=== PATIENT | male | born 1970 | race Caucasian/White ===

== ENCOUNTER 2019-01-21 15:33 | Outpatient (CLI) | payer BC ==
--- NOTE | 2019-01-21 16:07 | RAD ---
KUB 01/21/2019 HISTORY: Abdominal pain FINDINGS: Upright KUB provided. The pelvis is not fully imaged on this exam. No free intraperitoneal air is evident. No evidence for small bowel obstruction or air-fluid levels. IMPRESSION: Grossly unremarkable KUB as detailed above.
--- NOTE | 2019-01-21 17:17 | RAD ---
EXAM: CHEST TWO VIEWS: 01/21/19 HISTORY: Abdominal pain. COMPARISON: 08/18/15. FINDINGS: Heart size is within normal limits. The lungs are clear. No confluent pneumonia, overt edema or pleur al effusion. IMPRESSION: No acute intrathoracic disease. POS: [facility]
== END 2019-01-21 15:34 | disposition home or self-care (01) ==
LOC: BICRAD 15:33
PROVIDERS: ATTEND Family Medicine
DX: R10.9 Unspecified abdominal pain (principal)
CPT/HCPCS: 71046; 74018

== ENCOUNTER 2022-07-10 09:59 | Outpatient (CLI) | payer BC | END 2022-07-10 10:00 | disposition home or self-care (01) | LOC: BICRAD 09:59 | PROVIDERS: ATTEND Family Medicine | DX: Z87.01 Personal history of pneumonia (recurrent) (principal) | CPT/HCPCS: 71046 ==